=== PATIENT | male | born 1990 | race Caucasian/White ===

== ENCOUNTER 2020-05-16 22:58 | Emergency (ER) | payer OTHER, MEDICAID ==
[~2020-05-16] VITALS: Ht 162.6 cm; Wt 59.0 kg
[2020-05-16 23:40] LABS: HEMATOCRIT 39.4 % (42.0-52.0); HEMOGLOBIN 13.8 gm/dL (14.0-18.0); MCV 91.4 fL (80.0-100.0); MPV 7.6 fl. (7.2-11.1); RBC 4.31 mil/uL (4.50-6.00); RDW-CV 13.3 % (10.5-14.5); WBC 8.4 thou/uL (4.0-11.0)
[2020-05-16 23:43] LABS: CALCIUM 8.4 mg/dL (8.5-10.1); CREATININE 1.2 mg/dL (0.6-1.3); POTASSIUM 3.4 mmol/L (3.5-5.1)
[2020-05-16 23:47] LABS: ALBUMIN 3.8 g/dL (3.4-5.0); TOTAL BILIRUBIN 0.5 mg/dL (<0.1-1.0)
[2020-05-17 00:03] LABS: ACETAMINOPHEN < 2 ug/mL (10-30); ALCOHOL 45 mg/dL (<10); SALICYLATE < 2.8 mg/dL (2.8-20.0)
[2020-05-17 04:33] LABS: URINE BLOOD NEGATIVE (Negative); URINE CLARITY CLEAR; URINE COLOR YELLOW; URINE GLUCOSE-RANDOM NEGATIVE (Negative); URINE KETONES NEGATIVE (Negative); URINE LEUKOCYTES NEGATIVE (Negative); URINE NITRITE NEGATIVE (Negative); URINE PROTEIN TRACE (Negative); URINE SPECIFIC GRAVITY >= 1.030 (1.005-1.030)
[2020-05-17 04:34] LABS: URINE BILIRUBIN 1+ (Negative)
[2020-05-17 04:36] LABS: ICTOTEST (BILI CONFIRMATORY) Negative (Negative)
[2020-05-17 04:41] LABS: AMP/METHAMP POSITIVE (Negative); BARBITURATES Negative (Negative); BENZODIAZEPINES Negative (Negative); COCAINE Negative (Negative); METHADONE Negative (Negative); OPIATES Negative (Negative); PCP Negative (Negative); THC POSITIVE (Negative)
[2020-05-17] MEDS ORDERED: DIPHENHIST50 MG PO (15:22)
[2020-05-17] MEDS ORDERED: PREDNISONE50 MG PO (15:22)
[2020-05-17] MEDS ORDERED: EPIPEN0.3 MG/0.1 IM (15:22)
[2020-05-17 17:16] VITALS: BP 112/58
== END 2020-05-17 17:16 | disposition home or self-care (01) ==
LOC: M.ERS 22:58
PROVIDERS: Personal Emergency Response Attendant
DX: T78.40XA Allergy, unspecified, initial encounter (principal); F32.9 Major depressive disorder, single episode, unspecified; F19.10 Other psychoactive substance abuse, uncomplicated; F15.10 Other stimulant abuse, uncomplicated; R45.851 Suicidal ideations; Y92.89 Other specified places as the place of occurrence of the external cause